=== PATIENT | female | born 1975 | race Caucasian/White ===

== ENCOUNTER → 2017-09-30 | Outpatient (CLI) | payer BC, OTHER ==
[~2017-09-30] MED LIST: CEPH500 PO; KETO10 PO
[2017-09-30 19:43] LABS: BASOPHILS ABSOLUTE AUTO 0.09 K/mm3 (0.00-0.23); BASOPHILS PERCENT AUTO 1 % (0-2); EOSINOPHILS ABSOLUTE AUTO 0.23 K/mm3 (0.00-0.68); EOSINOPHILS PERCENT AUTO 2 % (0-6); Hematocrit 43.9 % (33.0-51.0); Hemoglobin 14.6 g/dL (11.5-16.0); IMMATURE GRAN ABSOLUTE AUTO 0.02 K/mm3 (0.00-0.10); IMMATURE GRAN PERCENT AUTO 0 % (0-1); LYMPHOCYTES ABSOLUTE AUTO 3.35 K/mm3 (0.84-5.20); LYMPHOCYTES PERCENT AUTO 30 % (21-46); MONOCYTES ABSOLUTE AUTO 0.72 K/mm3 (0.16-1.47); MONOCYTES PERCENT AUTO 6 % (4-13); Mean Corpuscular HGB 28.8 pg (26.0-34.0); Mean Corpuscular HGB Conc 33.3 g/dL (31.5-36.5); Mean Corpuscular Volume 87 fL (80-100); Mean Platelet Volume 10.5 fL (9.1-12.4); NEUTROPHILS ABSOLUTE AUTO 6.87 K/mm3 (1.96-9.15); NEUTROPHILS PERCENT AUTO 61 % (41-73); Platelet Count 415 K/mm3 (150-400); RDW Coefficient Variation 13.1 % (11.7-14.2); RDW Standard Deviation 40.9 fL (35.1-46.3); Red Blood Cell Count 5.07 M/mm3 (3.80-5.20); White Blood Cell Count 11.28 K/mm3 (4.00-11.30)
[2017-09-30 20:06] LABS: Alanine Aminotransfer (ALT/SGP 17 U/L (12-78); Albumin, Blood 3.7 g/dL (3.4-5.0); Albumin/Globulin Ratio 0.9 (0.8-1.8); Alk Phos 103 U/L (50-136); Anion Gap 8 mmol/L (6-16); Aspartate Aminotrans (AST/SGOT 14 U/L (12-37); Bilirubin, Total 0.8 mg/dL (0.1-1.0); Blood Urea Nitrogen 8 mg/dL (8-24); Bun/Creatinine Ratio 10.6 (12.0-20.0); CO2, Blood 26 mmol/L (21-32); Calcium, Blood 9.1 mg/dL (8.5-10.1); Chloride, Blood 103 mmol/L (98-108); Cholesterol 210 mg/dL (50-200); Creatinine, Blood 0.75 mg/dL (0.40-1.00); Glomerular Filtration Rate >60 (60-); Glucose, Blood 77 mg/dL (70-99); HDL Cholesterol 53 mg/dL (>39); Low Density Lipoprotein Chol 106 mg/dL (0-110); Potassium, Blood 3.9 mmol/L (3.5-5.5); Sodium, Blood 137 mmol/L (136-145); Total Protein, Blood 7.7 g/dL (6.4-8.2); Triglycerides 254 mg/dL (30-160); Troponin I <0.015 ng/mL (0.000-0.040); Very Low Density Lipoprot Chol 50 mg/dL (6-32)
== END ==
LOC: LAB 18:12
PROVIDERS: Physician Assistant
DX: R07.9 Chest pain, unspecified (principal)
CPT/HCPCS: 80053; 80061; 83036; 84443; 84484; 85025

== ENCOUNTER → 2018-08-27 | Outpatient (CLI) | payer BC | END | disposition home or self-care (01) | LOC: PLD 13:49 → LAB SHORT 13:49 | DX: R93.89 Abnormal findings on diagnostic imaging of other specified body structures (principal) | CPT/HCPCS: 88305 ==

== ENCOUNTER 2019-01-06 06:37 | Inpatient (IN) | payer BC, OTHER ==
[~2019-01-06] VITALS: Wt 117.9 kg
[~2019-01-06 06:37] MED LIST changes: +IBUP800 PO; +Prinivil10 MG PO
--- NOTE | 2019-01-06 08:24 | NUR ---
Ambulatory in Day Surgery History, Chart, Medications and Allergies reviewed before start of procedure.Patient confirms NPO status and agrees with scheduled surgery. Patient reports completing Chlorhexadine shower X2 prior to admission to hospital.Surgical site prepped with 2% Chlorhexidine cloth wipe.
--- NOTE | 2019-01-06 10:29 | NUR ---
01/06/19 1029 Sharmaine Frances RE-POSTITIONED, RE-PREPPED AND RE-DRAPED AFTER FIRST PROCEDURE
[2019-01-06 15:49] LABS: BASOPHILS ABSOLUTE AUTO 0.04 K/mm3 (0.00-0.23); BASOPHILS PERCENT AUTO 0 % (0-2); EOSINOPHILS ABSOLUTE AUTO 0.01 K/mm3 (0.00-0.68); EOSINOPHILS PERCENT AUTO 0 % (0-6); Hematocrit 33.5 % (33.0-51.0); Hemoglobin 10.4 g/dL (11.5-16.0); IMMATURE GRAN ABSOLUTE AUTO 0.13 K/mm3 (0.00-0.10); IMMATURE GRAN PERCENT AUTO 1 % (0-1); LYMPHOCYTES ABSOLUTE AUTO 0.69 K/mm3 (0.84-5.20); LYMPHOCYTES PERCENT AUTO 3 % (21-46); MONOCYTES ABSOLUTE AUTO 0.38 K/mm3 (0.16-1.47); MONOCYTES PERCENT AUTO 2 % (4-13); Mean Corpuscular HGB 26.7 pg (26.0-34.0); Mean Corpuscular Volume 86 fL (80-100); Mean Platelet Volume 10.6 fL (9.1-12.4); NEUTROPHILS ABSOLUTE AUTO 21.71 K/mm3 (1.96-9.15); NEUTROPHILS PERCENT AUTO 95 % (41-73); Platelet Count 308 K/mm3 (150-400); RDW Coefficient Variation 13.6 % (11.7-14.2); RDW Standard Deviation 42.2 fL (35.1-46.3); White Blood Cell Count 22.96 K/mm3 (4.00-11.30)
--- NOTE | 2019-01-06 17:45 | NUR ---
PT HAS BEEN SLIGHTLY HYPOTENSIVE POST OP. BRADYCARDIC 40'S-50'S SINCE OR. PT F/U CBC THIS AFTERNOON STABLE. IV INFUSING. PT HAS NOT USED MORPHINE CPR AMBULANCE DRIVER, STATES PAIN TOLERABLE. PROVENA CDI. SCANT MARILU DRAINAGE. PT LESLIE CLEAR LIQUIDS, MAY ADVANCE TOLERATED. NO FLATUS YET. PT AMBULATED HALLWAY X1. PAS TO BLE. REILLY DRAINING WELL, TO BE DC'D IN THE AM. MULTIPLE FAMILY MEMBERS PRESENT, ATTENTIVE. USES CALL LIGHT APPROPRIATELY NEEDED.
--- NOTE | 2019-01-06 19:36 | NUR ---
DO SOME DEEP BREATHING
--- NOTE | 2019-01-07 06:35 | NUR ---
SUMMARY: PT IS POD 1 TOTAL HYSTERECTOMY WITH BLADDER SLING. DOING WELL, VSS, HAS DENIED DIZZINESS, TOOK A WALK BEFORE SLEEPING. SURGICAL SITE WNL, DENIES VAGINAL BLEED . ABLE TO TOLERATE REG DIET, NO N/V. IV INFILTRATED AND MORPHINE CARE REP PAUSED. DR. SÁNCHEZ CALLED AT 0450 AND MORPHINE CARE REP DC'D, SWITCHED TO PO PAIN MEDS AND FLUIDS DC'D. REILLY DC'D THIS AM. NO ACUTE SAFETY CONCERNS AT THIS TIME. WILL CTM AND REPORT TO DAY RN
--- NOTE | 2019-01-07 07:00 | NUR ---
REPORT FROM ROSA MARIA RUVALCABA. ASSUMED PT CARE. PT SLEEPING.
[2019-01-07] MEDS ORDERED: Percocet 5-3251 EACH PO (08:47)
[2019-01-07] MEDS ORDERED: DOCU100 PO (08:47)
--- NOTE | 2019-01-07 12:32 | NUR ---
PT MEDICATED WITH 1 NORCO FOR PAIN. PT BACK TO BED.
--- NOTE | 2019-01-07 13:35 | NUR ---
PT UP WALKING HALLS.
--- NOTE | 2019-01-07 14:50 | NUR ---
REVIEWED DC WITH PT AND PT SPOUSE. ALL BELONGINGS WITH PT. ESCORTED OUT VIA WC.
== END 2019-01-07 15:06 | disposition home or self-care (01) | DRG 743 ==
LOC: SURS 06:37 → PRE IP 09:00 → SURS 12:59
PROVIDERS: ADMIT Obstetrics & Gynecology Gynecology
PROC: 0UT90ZZ Resection of Uterus, Open Approach (ICD-10-PCS; principal; 2019-01-06 09:00)
PROC: 0UT70ZZ Resection of Bilateral Fallopian Tubes, Open Approach (ICD-10-PCS; 2019-01-06 09:00)
PROC: 0UTC0ZZ Resection of Cervix, Open Approach (ICD-10-PCS; 2019-01-06 09:00)
PROC: 0TSD0ZZ Reposition Urethra, Open Approach (ICD-10-PCS; 2019-01-06 09:00)
DX: N85.2 Hypertrophy of uterus (principal); D25.9 Leiomyoma of uterus, unspecified; N92.0 Excessive and frequent menstruation with regular cycle; R93.89 Abnormal findings on diagnostic imaging of other specified body structures; N39.3 Stress incontinence (female) (male)
CPT/HCPCS: 36415; 84703; 85025; 88307; A9270-GY; C1771; J0690; J1100; J1885; J2250; J2270; J2405; J2704; J2765; J3010; J7120

== ENCOUNTER 2019-12-12 20:59 | Emergency (ER) | payer BC ==
[~2019-12-12 20:59] MED LIST changes: +DOCU100 PO; +Percocet 5-3251 EACH PO
[2019-12-12 21:51] LABS: Source, Urine Clean Catch
[2019-12-12 21:53] LABS: Appearance, Urine Clear (Clear); Bilirubin, Urine Neg (Neg); Blood, Urine 3+ (Neg); Color, Urine Yellow (P-Yellow); Glucose Qualitative, Urine Neg (Neg); Ketones, Urine 1+ (Neg); Leukocyte Esterase, Urine Neg (Neg); Nitrite, Urine Neg (Neg); Protein, Urine 1+ (Neg); Specific Gravity, Urine 1.025 (1.003-1.022); Urobilinogen, Urine 2+ (Normal)
[2019-12-12 21:56] LABS: BASOPHILS ABSOLUTE AUTO 0.09 K/mm3 (0.00-0.23); BASOPHILS PERCENT AUTO 1 % (0-2); EOSINOPHILS ABSOLUTE AUTO 0.24 K/mm3 (0.00-0.68); EOSINOPHILS PERCENT AUTO 2 % (0-6); Hematocrit 41.6 % (33.0-51.0); Hemoglobin 13.2 g/dL (11.5-16.0); IMMATURE GRAN ABSOLUTE AUTO 0.03 K/mm3 (0.00-0.10); IMMATURE GRAN PERCENT AUTO 0 % (0-1); LYMPHOCYTES ABSOLUTE AUTO 2.81 K/mm3 (0.84-5.20); LYMPHOCYTES PERCENT AUTO 26 % (21-46); MONOCYTES ABSOLUTE AUTO 0.67 K/mm3 (0.16-1.47); MONOCYTES PERCENT AUTO 6 % (4-13); Mean Corpuscular HGB 27.4 pg (26.0-34.0); Mean Corpuscular HGB Conc 31.7 g/dL (31.5-36.5); Mean Corpuscular Volume 87 fL (80-100); Mean Platelet Volume 10.8 fL (9.1-12.4); NEUTROPHILS ABSOLUTE AUTO 7.17 K/mm3 (1.96-9.15); NEUTROPHILS PERCENT AUTO 65 % (41-73); Platelet Count 358 K/mm3 (150-400); RDW Coefficient Variation 14.6 % (11.7-14.2); RDW Standard Deviation 46.1 fL (35.1-46.3); Red Blood Cell Count 4.81 M/mm3 (3.80-5.20); White Blood Cell Count 11.01 K/mm3 (4.00-11.30)
[2019-12-12 21:59] LABS: Bacteria Many /hpf; Mucus Light (0-Heavy); Squamous Epithelial Cells Mod /hpf (Few); Urine Culture Indicated Yes (No)
[2019-12-12 22:15] LABS: Alanine Aminotransfer (ALT/SGP 34 U/L (12-78); Albumin, Blood 3.5 g/dL (3.4-5.0); Alk Phos 101 U/L (50-136); Anion Gap 8 mmol/L (6-16); Aspartate Aminotrans (AST/SGOT 22 U/L (12-37); Bilirubin, Total 0.7 mg/dL (0.1-1.0); Blood Urea Nitrogen 11 mg/dL (8-24); Bun/Creatinine Ratio 13.1 (12.0-20.0); CO2, Blood 26 mmol/L (21-32); Calcium, Blood 8.9 mg/dL (8.5-10.1); Chloride, Blood 108 mmol/L (98-108); Creatinine, Blood 0.84 mg/dL (0.40-1.00); Globulin, Blood 3.6 g/dL (2.2-4.0); Glomerular Filtration Rate >60 (60-); Glucose, Blood 98 mg/dL (70-99); Potassium, Blood 3.6 mmol/L (3.5-5.5); Sodium, Blood 142 mmol/L (136-145); Total Protein, Blood 7.1 g/dL (6.4-8.2)
== END 2019-12-12 23:51 | disposition home or self-care (01) ==
PROVIDERS: Emergency Medicine
DX: R10.31 Right lower quadrant pain (principal); I10 Essential (primary) hypertension; Z87.891 Personal history of nicotine dependence

== ENCOUNTER 2020-11-19 05:47 | Observation (INO) | payer OTHER ==
[~2020-11-19] VITALS: Ht 165.1 cm; Wt 124.7 kg
[2020-11-19] MEDS ORDERED: LISI20 PO (05:58)
[2020-11-19] MEDS ORDERED: IBU800 M1 PO (05:59)
[2020-11-19 07:13] LABS: BASOPHILS ABSOLUTE AUTO 0.06 K/mm3 (0.00-0.23); BASOPHILS PERCENT AUTO 0 % (0-2); EOSINOPHILS ABSOLUTE AUTO 0.02 K/mm3 (0.00-0.68); EOSINOPHILS PERCENT AUTO 0 % (0-6); Hemoglobin 14.7 g/dL (11.5-16.0); IMMATURE GRAN ABSOLUTE AUTO 0.08 K/mm3 (0.00-0.10); IMMATURE GRAN PERCENT AUTO 0 % (0-1); LYMPHOCYTES ABSOLUTE AUTO 1.14 K/mm3 (0.84-5.20); LYMPHOCYTES PERCENT AUTO 5 % (21-46); MONOCYTES ABSOLUTE AUTO 0.91 K/mm3 (0.16-1.47); MONOCYTES PERCENT AUTO 4 % (4-13); Mean Corpuscular HGB Conc 34.2 g/dL (31.5-36.5); Mean Corpuscular Volume 88 fL (80-100); Mean Platelet Volume 10.5 fL (9.1-12.4); NEUTROPHILS ABSOLUTE AUTO 19.95 K/mm3 (1.96-9.15); NEUTROPHILS PERCENT AUTO 90 % (41-73); Platelet Count 291 K/mm3 (150-400); RDW Coefficient Variation 12.9 % (11.7-14.2); RDW Standard Deviation 41.7 fL (35.1-46.3); White Blood Cell Count 22.16 K/mm3 (4.00-11.30)
[2020-11-19 07:35] LABS: Alanine Aminotransfer (ALT/SGP 19 U/L (12-78); Albumin, Blood 3.6 g/dL (3.4-5.0); Alk Phos 89 U/L (50-136); Anion Gap 7 mmol/L (6-16); Aspartate Aminotrans (AST/SGOT 13 U/L (12-37); Bilirubin, Total 0.9 mg/dL (0.1-1.0); Blood Urea Nitrogen 13 mg/dL (8-24); Bun/Creatinine Ratio 16.6 (12.0-20.0); CO2, Blood 23 mmol/L (21-32); Calcium, Blood 9.2 mg/dL (8.5-10.1); Chloride, Blood 105 mmol/L (98-108); Creatinine, Blood 0.78 mg/dL (0.40-1.00); Globulin, Blood 3.7 g/dL (2.2-4.0); Glomerular Filtration Rate >60 (60-); Glucose, Blood 130 mg/dL (70-99); Potassium, Blood 4.4 mmol/L (3.5-5.5); Sodium, Blood 135 mmol/L (136-145); Total Protein, Blood 7.3 g/dL (6.4-8.2)
[2020-11-19 10:31] LABS: Influenza A, PCR NEGATIVE (NEGATIVE); Influenza B, PCR NEGATIVE (NEGATIVE); Resp Syncytial Virus, PCR NEGATIVE (NEGATIVE); SARS-Cov-2 (COVID-19) PCR, MMC NEGATIVE (NEGATIVE)
--- NOTE | 2020-11-19 14:38 | NUR ---
11/19/20 1438 Jose Lindsay PATIENT RECEIVED ANTIBIOTICS IN ED.
--- NOTE | 2020-11-19 16:39 | NUR ---
ARRIVED FROM PACU VIA GURNEY, PT AMBULATED TO THE BATHROOM THEN TO BED, TOLERATED WELL, DENIES ANY PAIN OR NAUSEA AT THIS TIME, SIPS OF WATER AND ICE CHIPS GIVEN, CONT. TO MONITOR FOR ANY CHANGES.
--- NOTE | 2020-11-19 17:51 | NUR ---
SUMMARY VSS, AMBULATING TO THE BATHROOM TO VOID, DENIES ANY PAIN, ABD DSGS C/D/I, NO ACUTE CHANGES THIS SHIFT.
--- NOTE | 2020-11-20 04:05 | NUR ---
SHIFT SUMMARY POST OP DAY 1 FOR [employer]. PT IS INDEPENDENT AND AMBULATES TO AND FROM THE BATHROOM. GOT UP AND WALKED THE HALLWAYS. PASSING MINIMAL AMOUNTS OF GAS. PT IS VOIDING WITHOUT DIFFICULTY. PT HAS HAD VERY LITTLE PAIN THIS SHIFT. SHE DOES GET A LITTLE SOB UPON EXERTION. SHE WAS MEDICATED WITH 1 NORCO PRIOR TO GO TO BED LAST NIGHT. WOUND DRESSING ARE CLEAN AND DRY.
--- NOTE | 2020-11-20 05:40 | NUR ---
POD 1 S/P LAP APPY. PT VSS T/O NIGHT. NO ACTIVE DRNG NOTED ON DRESSINGS. PT REP PAIN MINIMAL; DECLINED NEED FOR PAIN MEDS. PT LESLIE CL PO, NO N/V, REP NO FLATUS YET, IS VOIDING URINE W/O DIFFICUTLY. PT AMB INDEP IN HALLS, LESLIE WELL.
--- NOTE | 2020-11-20 07:37 | NUR ---
A&OX3, DR. GAVIN IN TO SEE PT, STATES PAIN IS "OK" WITH PO PAIN MEDS, DENIES ANY NAUSEA, PLAN DC HOME TODAY.
[2020-11-20] MEDS ORDERED: HYDR1TAB94 PO (08:10)
== END 2020-11-20 08:55 | disposition home or self-care (01) ==
LOC: ER 05:47 → SURS 05:48
PROVIDERS: Emergency Medicine; ADMIT Surgery
DX: K35.31 Acute appendicitis with localized peritonitis and gangrene, without perforation (principal); I10 Essential (primary) hypertension; E66.01 Morbid (severe) obesity due to excess calories; Z68.42 Body mass index [BMI] 45.0-49.9, adult; Z20.822 Contact with and (suspected) exposure to COVID-19; Z90.49 Acquired absence of other specified parts of digestive tract
CPT/HCPCS: 0241U; 36415; 74177; 80053; 83690; 85025; 88304; 96372; 96375; A9270-GY; G0378; J0295; J1170; J1650; J2250; J2405; J2543; J2704; J3010; J7120; Q9967

== ENCOUNTER 2021-04-08 09:59 | Emergency (ER) | payer OTHER ==
[~2021-04-08] VITALS: Ht 165.1 cm; Wt 114.8 kg
[~2021-04-08 09:59] MED LIST changes: +HYDR1TAB94 PO; +IBU800 M1 PO; +LISI20 PO
[2021-04-08 10:42] LABS: Hemoglobin 15.6 g/dL (11.5-16.0); Mean Corpuscular HGB 30.2 pg (26.0-34.0); Mean Corpuscular HGB Conc 34.7 g/dL (31.5-36.5); Mean Corpuscular Volume 87 fL (80-100); Mean Platelet Volume 10.3 fL (9.1-12.4); Platelet Count 322 K/mm3 (150-400); RDW Coefficient Variation 12.6 % (11.7-14.2); RDW Standard Deviation 40.3 fL (35.1-46.3); Red Blood Cell Count 5.16 M/mm3 (3.80-5.20); White Blood Cell Count 11.75 K/mm3 (4.00-11.30)
[2021-04-08 11:11] LABS: Alanine Aminotransfer (ALT/SGP 19 U/L (12-78); Albumin, Blood 3.7 g/dL (3.4-5.0); Alk Phos 83 U/L (50-136); Anion Gap 10 mmol/L (6-16); Aspartate Aminotrans (AST/SGOT 10 U/L (12-37); Bilirubin, Total 1.1 mg/dL (0.1-1.0); Blood Urea Nitrogen 12 mg/dL (8-24); Bun/Creatinine Ratio 12.8 (12.0-20.0); CO2, Blood 21 mmol/L (21-32); Calcium, Blood 9.1 mg/dL (8.5-10.1); Chloride, Blood 108 mmol/L (98-108); Creatinine, Blood 0.94 mg/dL (0.40-1.00); Globulin, Blood 3.7 g/dL (2.2-4.0); Glomerular Filtration Rate >60 (60-); Glucose, Blood 134 mg/dL (70-99); Potassium, Blood 3.3 mmol/L (3.5-5.5); Sodium, Blood 139 mmol/L (136-145); Total Protein, Blood 7.4 g/dL (6.4-8.2)
[2021-04-08 11:31] LABS: BASOPHILS PERCENT MAN 0 % (0-2); EOSINOPHILS ABSOLUTE MAN 0.35 K/mm3 (0.00-0.68); EOSINOPHILS PERCENT MAN 3 % (0-6); LYMPHOCYTES % ATYPICAL MANUAL 1 % (0-0); LYMPHOCYTES ABSOLUTE MAN 4.23 K/mm3 (0.84-5.20); LYMPHOCYTES PERCENT MAN 35 % (21-46); MONOCYTES ABSOLUTE MAN 0.58 K/mm3 (0.16-1.47); MONOCYTES PERCENT MAN 5 % (4-13); NEUTROPHILS ABSOLUTE MAN 6.58 K/mm3 (1.96-9.15); SEG NEUTROPHILS PERCENT MAN 56 % (41-73); TOTAL CELLS COUNTED 100
[2021-04-08 12:43] LABS: Source, Urine Clean Catch
[2021-04-08 12:52] LABS: Bilirubin, Urine Neg (Neg); Blood, Urine 5+ (Neg); Color, Urine Yellow (P-Yellow); Glucose Qualitative, Urine Neg (Neg); Leukocyte Esterase, Urine 1+ (Neg); Nitrite, Urine Neg (Neg); Protein, Urine 2+ (Neg); Specific Gravity, Urine 1.015 (1.003-1.022); Urobilinogen, Urine 1+ (Normal)
[2021-04-08] MEDS ORDERED: Percocet 5-3251 EACH PO (13:15)
[2021-04-08] MEDS ORDERED: TAMS.4ER PO (13:15)
[2021-04-08] MEDS ORDERED: ONDA4ODT MM (13:15)
[2021-04-08] MEDS ORDERED: IBUP800 PO (13:15)
[2021-04-08 13:29] LABS: Appearance, Urine Clear (Clear); Ketones, Urine 2+ (Neg)
[2021-04-08 13:31] LABS: Bacteria Rare /hpf; Mucus Light (0-Heavy); Red Blood Cells, Urine 25-50 /hpf (0-2); Squamous Epithelial Cells Few /hpf (Few)
[2021-04-08] MEDS ORDERED: SULTRIDS PO (13:48)
== END 2021-04-08 14:10 | disposition home or self-care (01) ==
LOC: ER 09:59
PROVIDERS: Physician Assistant
DX: N13.2 Hydronephrosis with renal and ureteral calculous obstruction (principal); R11.2 Nausea with vomiting, unspecified; I10 Essential (primary) hypertension; Z88.5 Allergy status to narcotic agent; Z79.899 Other long term (current) drug therapy; Z87.891 Personal history of nicotine dependence; Z87.442 Personal history of urinary calculi
CPT/HCPCS: 36415; 74177; 76830; 76856; 80053; 81001; 83690; 85025; 87086; 96361; 96374; 96375; 99284-25; A9270; J1170; J1885; J2405; J2765; J7030; J7120; Q9967

== ENCOUNTER → 2022-11-05 | Outpatient (CLI) | payer OTHER ==
[~2022-11-05] MED LIST changes: +ONDA4ODT MM; +SULTRIDS PO; +TAMS.4ER PO
== END | disposition home or self-care (01) ==
LOC: LAB 11:41 → LAB SHORT 11:41
DX: N39.0 Urinary tract infection, site not specified (principal)
CPT/HCPCS: 87086

== ENCOUNTER → 2022-12-12 | Outpatient (CLI) | payer OTHER ==
[2022-12-14 00:11] LABS: CHLAMYDIA TRACHOMATIS, NAA Negative (Negative)
== END ==
LOC: LAB 17:26 → LAB SHORT 17:26
PROVIDERS: Physician Assistant Medical
DX: Z11.3 Encounter for screening for infections with a predominantly sexual mode of transmission (principal)
CPT/HCPCS: 87491; 87591